=== PATIENT | male | born 1970 | race American Indian/Alaskan Native ===

== ENCOUNTER 2019-05-03 13:52 | Inpatient (IN) | payer MEDICARE ==
--- NOTE | 2019-05-03 15:21 | Emergency Department Report ---
ED General Adult HPI - General Chief complaint: Overdose Stated complaint: OBSERVATION Time Seen by Provider: 05/03/19 15:12 Source: patient, EMS ( EMS documentation not available at time of chart dictation ), RN notes reviewed, old records reviewed Mode of arrival: Stretcher Limitations: Altered Mental Status, Physical Limitation - History of Present Illness Initial comments: Vascular surgery, Dr. Rosalino Booker Past medical history: Hypertension, right above-knee amputation, on Coumadin, left upper extremity AV graft, CABG, renal insufficiency, on dialysis We do not know who the patient's power transformer repair supervisor is. The patient was reportedly at [facility] to get his dialysis shunt unclogged. He was reportedly given 50 g of fentanyl, 2 mg of Versed at 10:15 in the morning. He became unarousable, and 0.4 of Narcan was administered, and 2 of Romazicon were also administered, and the patient is sent to the ER for further evaluation. The patient is sleepy but arousable. The patient does not endorse any pain at this time. The patient refused to let nursing team take his temperature. In the emergency room, the patient is sleepy but arousable. He has not made any complaints of homicidality or suicidality. He makes no complaint of physical pain at this time. He is not able to describe exacerbating or relieving factors. He reportedly had overs planned for a left upper extremity venogram today. -: This morning Radiation: other Quality: other Consistency: other Improves with: other Worsens with: other - Related Data Allergies Allergy/AdvReac Type Severity Reaction Status Date / Time No Known Allergies Allergy Unverified 05/03/19 14:26 ED Review of Systems ROS: Stated complaint: OBSERVATION Other details as noted in HPI Comment: Unobtainable due to pts medical conditions ED Past Medical Hx - Past Medical History Hx Hypertension: Yes Hx Diabetes: Yes Hx Renal Disease: Yes - Social History Smoking Status: Former Smoker Substance Use Type: None ED Physical Exam - General General appearance: lethargic - Head Head exam: Present: atraumatic, normocephalic - Eye Eye exam: Present: normal appearance, PERRL - ENT ENT exam: Present: normal exam, mucous membranes moist, normal external ear exam - Neck Neck exam: Present: normal inspection, full ROM. Absent: tenderness, meningismus - Respiratory Respiratory exam: Present: normal lung sounds bilaterally. Absent: respiratory distress - Cardiovascular Cardiovascular Exam: Present: normal rhythm, bradycardia, normal heart sounds. Absent: systolic murmur, diastolic murmur, rubs, gallop - GI/Abdominal GI/Abdominal exam: Present: soft. Absent: distended, tenderness, guarding, rebound, rigid, pulsatile mass - Rectal Rectal exam: Present: deferred - Extremities Exam Extremities exam: Present: normal inspection, other (2+ pulses noted in bilateral upper extremities and left lower extremity. There is an upper extremity fistula, with no redness, pus or streaking. There is a left lower extremity below-knee amputation stump site, pilar in place, with no redness, pus or streaking) - Back Exam Back exam: Present: normal inspection - Neurological Exam Neurological exam: Present: altered, other (Eischen is sleepy but arousable. When the patient is aroused, he speaks in incomplete sentences, there is no facial droop, he does move his bilateral upper and lower extremities. However, he falls right back to sleep.) - Psychiatric Psychiatric exam: Present: flat affect - Skin Skin exam: Present: warm, dry, intact, normal color. Absent: rash ED Course Vital Signs 05/03/19 05/03/19 05/03/19 14:00 14:01 14:16 Pulse Rate 52 L Respiratory 19 23 Rate Blood Pressure 113/60 Blood Pressure [Left] O2 Sat by Pulse 100 91 100 Oximetry 05/03/19 05/03/19 05/03/19 14:18 14:30 14:46 Pulse Rate 51 L 51 L 51 L Respiratory 19 23 21 Rate Blood Pressure 113/66 117/69 Blood Pressure 113/66 [Left] O2 Sat by Pulse 98 99 97 Oximetry 05/03/19 05/03/19 05/03/19 15:00 15:16 15:30 Pulse Rate 50 L 51 L 52 L Respiratory 19 15 21 Rate Blood Pressure 120/65 121/68 121/71 Blood Pressure [Left] O2 Sat by Pulse 99 98 98 Oximetry 05/03/19 05/03/19 05/03/19 15:46 16:00 16:16 Pulse Rate 52 L 50 L 49 L Respiratory 18 23 18 Rate Blood Pressure 117/67 118/69 118/63 Blood Pressure [Left] O2 Sat by Pulse 98 98 98 Oximetry 05/03/19 05/03/19 05/03/19 16:30 16:46 17:00 Pulse Rate 51 L 51 L 50 L Respiratory 18 19 19 Rate Blood Pressure 116/66 116/66 120/66 Blood Pressure [Left] O2 Sat by Pulse 98 99 99 Oximetry 05/03/19 05/03/19 05/03/19 17:16 18:04 18:16 Pulse Rate 55 L Respiratory 19 Rate Blood Pressure 117/67 117/67 117/67 Blood Pressure [Left] O2 Sat by Pulse 100 98 97 Oximetry 05/03/19 05/03/19 05/03/19 18:30 18:46 19:00 Pulse Rate Respiratory Rate Blood Pressure 125/71 125/71 125/71 Blood Pressure [Left] O2 Sat by Pulse 97 98 100 Oximetry 05/03/19 05/03/19 19:16 19:30 Pulse Rate 63 Respiratory 23 Rate Blood Pressure 125/71 146/74 Blood Pressure 146/74 [Left] O2 Sat by Pulse 100 100 Oximetry - Reevaluation(s) Reevaluation #1: 05/03/19 17:14 Differential diagnosis, including but not limited to: Toxic encephalopathy, likely secondary to presedation medications, renal insufficiency, intracranial hemorrhage Assessment and plan: 48-year-old gentleman with prolonged altered mental status after sedating medications. He is arousable. He is refusing some but not all interventions. The patient in my opinion appears to have impaired judgment, but has not endorsed any homicidality or suicidality. He will be placed on a hold pending improvement in mental status. He is protecting his airway at this time. Screening laboratory studies EKG, noncontrast CT scan of the brain ordered. We do not know who his power transformer repair supervisor is. Anticipate admission for observation. Does not require Narcan at this time. He will require supportive care. Reevaluation #2: 05/03/19 18:04 Laboratory studies demonstrate hyperkalemia, 7.3. This was not verbally reported to me. This is a critical lab value. The patient will be treated emergently for his hyperkalemia in a medical capacity. An emergency nephrology consult has been requested. We have discussed with Hospital physician, Dr. Mariaelena Light who has accepted the patient to the medical service. Reevaluation #3: 05/03/19 18:09 Supratherapeutic INR reviewed and appreciated. There is no active vomiting at this time. There is no obvious bleeding at this time. Patient will be placed on a monitored setting. Reevaluation #4: 05/03/19 20:08 ct head negative - Consultations Consultation #1: 05/03/19 18:27 Dr Avina to arrange emergent hemodialysis ED Medical Decision Making - Lab Data Result diagrams: 05/03/19 16:26 05/03/19 16:26 Vital Signs 05/03/19 14:18 Pulse Rate 51 L Respiratory 19 Rate Blood Pressure 113/66 [Left] O2 Sat by Pulse 98 Oximetry Labs 05/03/19 05/03/19 16:26 16:39 WBC 11.6 H RBC 2.39 L Hgb 7.7 L Hct 24.1 L MCV 101 H MCH 32 MCHC 32 RDW 22.5 H Plt Count 264 PT 48.4 H INR 5.36 H* - EKG Data -: EKG Interpreted by Sd EKG shows normal: sinus rhythm Rate: bradycardia - EKG Data 05/03/19 18:05 There is no prior EKG available for comparison. This is a sinus bradycardia, left axis deviation, QTC is prolonged, nonspecific ST abnormalities, there is low voltage, the EKG is abnormal, the EKG is not consistent with ST elevation myocardial infarction. - Radiology Data Radiology results: pending, image reviewed Critical Care Time: Yes Critical care time in (mins) excluding proc time.: 35 Critical care attestation.: If time is entered above; I have spent that time in minutes in the direct care of this critically ill patient, excluding procedure time. ED Disposition Clinical Impression: Hyperkalemia, Uremia, Altered mental status, ESRD (end stage renal disease) Disposition: DC-09 OP ADMIT IP TO THIS HOSP Is pt being admited?: Yes Condition: Fair
--- NOTE | 2019-05-03 16:07 | XRay Report ---
CHEST 1 VIEW INDICATION: od weak ams. COMPARISON: None FINDINGS: Support devices: A right IJ vas catheter terminates in the superior right atrium. Heart: Previous cardiac valve surgery changes. Mild cardiomegaly is evident. Lungs/Pleura: No acute air space or interstitial disease. Additional findings: None. IMPRESSION: Mild cardiomegaly. Lungs clear. Signer Name: Peterson Mayer Jr, MD Signed: 05/03/2019 4:03 PM Workstation Name: [id number]
[2019-05-03 16:54] LABS: Hematocrit 24.1 % (35.5-45.6); Hemoglobin 7.7 gm/dl (11.8-15.2); Mean Corpuscular HGB Conc 32 % (32-34); Mean Corpuscular Volume 101 fl (84-94); Platelet Count 264 K/mm3 (140-440); Red Blood Count 2.39 M/mm3 (3.65-5.03)
[2019-05-03 16:55] LABS: Red Cell Distribution Width 22.5 % (13.2-15.2)
[2019-05-03 17:11] LABS: INR 5.36 (0.87-1.13)
[2019-05-03 17:29] LABS: Calcium 8.4 mg/dL (8.4-10.2)
[2019-05-03] MEDS ORDERED: PROVENTIL IH ONE ×3 (18:01→19:51)
[2019-05-03] MEDS ORDERED: D50W (25GM) Syringe IV PRN (18:01)
[2019-05-03] MEDS ORDERED: LASIX IV ONE (18:01)
[2019-05-03] MEDS ORDERED: KIONEX PR ONE (18:01)
[2019-05-03] MEDS ORDERED: HumuLIN R IV ONE (18:01)
[2019-05-03] MEDS ORDERED: D50W (25GM) Syringe IV ONE ×2 (18:01→18:34)
--- NOTE | 2019-05-03 18:11 | Cat Scan Report ---
CT head/brain wo con INDICATION / CLINICAL INFORMATION: 48 years Male; ams on coumadin. TECHNIQUE: Routine CT head without contrast. All CT scans at this location are performed using CT dos e reduction for ALARA by means of automated exposure control. COMPARISON: None. FINDINGS: BRAIN / INTRACRANIAL CONTENTS: There is notable calcification involving the scalp vessels a patient t his age. There is also mild calcification within the basal ganglia. However, there is no definitive C T evidence of acute intracranial hemorrhage or significant mass affect. The findings are compatible w ith old small lacunar infarct involving the head of the left caudate. The ventricular system is withi n normal limits in size and configuration. ORBITS: No significant abnormality of visualized orbits. SINUSES / MASTOIDS: No significant abnormality the visualized paranasal sinuses or mastoid air cells. CRANIOCERVICAL JUNCTION: No significant abnormality. ADDITIONAL FINDINGS: None. IMPRESSION: 1. There is no CT evidence of acute intracranial process. There is an old small lacunar infarct invol ving the head of the left caudate. Signer Name: Josse Martinez MD Signed: 05/03/2019 6:07 PM Workstation Name: [id number]
[2019-05-03] MEDS ORDERED: CALCIUM GLUCONATE 1,000 MG in NACL 0.9% 100 ML IV ONE (18:20)
[2019-05-03] MEDS ORDERED: HumuLIN R ONE (18:33)
[2019-05-03] MEDS ORDERED: LASIX ONE (18:35)
[2019-05-03] MEDS ORDERED: NACL 0.9% 100 ML IV PRN (19:07)
[2019-05-03] MEDS ORDERED: KIONEX ONE ×2 (19:30→19:33)
[2019-05-03] MEDS ORDERED: NACL 0.9 (PRIMING MACHINE ONLY DIALYSIS) MC ONE (22:25)
--- NOTE | 2019-05-03 23:34 | History and Physical Report ---
History of Present Illness Date of examination: 05/03/19 Date of admission: 05/03/19 18:08 Chief complaint: Persistent decreased responsiveness after surgical procedure History of present illness: The patient was reportedly at [facility] to get his dialysis shunt unclogged. He was reportedly given 50 g of fentanyl, 2 mg of Versed at 10:15 in the morning. He became unarousable, and 0.4 of Narcan was administered, and 2 of Romazicon were also administered, and the patient is sent to the ER for further evaluation. The patient is sleepy but arousable. The patient does not endorse any pain at this time. The patient refused to let nursing team take his temperature. In the emergency room, the patient is sleepy but arousable. He has not made any complaints of homicidality or suicidality. He makes no complaint of physical pain at this time. He is not able to describe exacerbating or relieving factors. He reportedly had overs planned for a left upper extremity venogram today. Past Medical History Hypertension: Yes Diabetes: Yes Renal Disease: Yes Social History Smoking Status: Former Smoker Substance Use Type: None Surgery history AV Graft John PACHECO Rt AKA Family history Htn Review of Systems ROS: Stated complaint: OBSERVATION Other details as noted in HPI Comment: Unobtainable due to pts medical conditions 14 point review of systems negative Medications and Allergies Allergies Allergy/AdvReac Type Severity Reaction Status Date / Time No Known Allergies Allergy Unverified 05/03/19 14:26 Home Medications Medication Instructions Recorded Confirmed Last Taken Type Carvedilol [Coreg] 12.5 mg PO BID 05/03/19 05/03/19 05/02/19 History Isosorb Dinit/Hydralazine [Bidil 1 each PO BID 05/03/19 05/03/19 05/02/19 History 20/37.5MG] Oxycodone HCl/Acetaminophen 1 each PO Q6HR PRN 05/03/19 05/03/19 04/20/19 History [Percocet 2.5/325 mg] cephALEXin [Keflex] 500 mg PO Q12HR 05/03/19 05/03/19 05/02/19 History Active Meds: Active Medications Dextrose (D50w (25gm) Syringe) 50 ml IV PRN PRN PRN Reason: Hypoglycemia Sodium Chloride (Nacl 0.9%) 100 mls @ 999 mls/hr IV CLINT PRN PRN Reason: Hypotension Exam - Constitutional Vitals: Temp Pulse Resp BP Pulse Ox 98.2 F 69 18 137/62 100 05/03/19 23:06 05/03/19 23:06 05/03/19 23:06 05/03/19 23:06 05/03/19 19:30 General appearance: Present: no acute distress, well-nourished - EENT Eyes: Present: PERRL ENT: hearing intact, clear oral mucosa - Neck Neck: Present: supple, normal ROM - Respiratory Respiratory effort: normal Respiratory: bilateral: CTA - Cardiovascular Heart rate: 78 Rhythm: regular Heart Sounds: Present: S1 & S2. Absent: rub, click - Extremities Extremities: pulses symmetrical, No edema, abnormal (Rt AKA) Peripheral Pulses: within normal limits - Abdominal General gastrointestinal: Present: soft, non-tender, non-distended, normal bowel sounds Male genitourinary: Present: normal - Integumentary Integumentary: Present: clear, warm, dry - Musculoskeletal Musculoskeletal: strength equal bilaterally, generalized weakness - Psychiatric Psychiatric: appropriate mood/affect, intact judgment & insight - Neurologic Neurologic: CNII-XII intact, moves all extremities, other (decreased responsive ness) Results - Labs CBC & Chem 7: 05/03/19 16:26 05/03/19 16:26 Labs: Laboratory Last Values WBC 11.6 K/mm3 (4.5-11.0) H 05/03/19 16:26 RBC 2.39 M/mm3 (3.65-5.03) L 05/03/19 16:26 Hgb 7.7 gm/dl (11.8-15.2) L 05/03/19 16:26 Hct 24.1 % (35.5-45.6) L 05/03/19 16:26 MCV 101 fl (84-94) H 05/03/19 16:26 MCH 32 pg (28-32) 05/03/19 16:26 MCHC 32 % (32-34) 05/03/19 16:26 RDW 22.5 % (13.2-15.2) H 05/03/19 16:26 Plt Count 264 K/mm3 (140-440) 05/03/19 16:26 PT 48.4 Sec. (12.2-14.9) H 05/03/19 16:39 INR 5.36 (0.87-1.13) H* 05/03/19 16:39 APTT 86.4 Sec. (24.2-36.6) H* 05/03/19 18:07 Sodium 138 mmol/L (137-145) 05/03/19 16:26 Potassium 7.3 mmol/L (3.6-5.0) H* 05/03/19 16:26 Chloride 100.8 mmol/L (98-107) 05/03/19 16:26 Carbon Dioxide 11 mmol/L (22-30) L 05/03/19 16:26 Anion Gap 34 mmol/L 05/03/19 16:26 BUN 93 mg/dL (9-20) H 05/03/19 16:26 Creatinine 13.6 mg/dL (0.8-1.5) H 05/03/19 16:26 Estimated GFR 5 ml/min 05/03/19 16:26 BUN/Creatinine Ratio 7 % 05/03/19 16:26 Glucose 157 mg/dL (75-100) H 05/03/19 16:26 Calcium 8.4 mg/dL (8.4-10.2) 05/03/19 16:26 Magnesium 2.10 mg/dL (1.7-2.3) 05/03/19 16:26 Total Creatine Kinase 76 units/L (55-170) 05/03/19 16:26 Salicylates < 0.3 mg/dL (2.8-20.0) L 05/03/19 16:26 Acetaminophen < 5.0 ug/mL (10.0-30.0) L 05/03/19 16:39 Plasma/Serum Alcohol < 0.01 % (0-0.07) 05/03/19 16:26 Hepatitis A IgM Ab Non-reactive (NonReactive) 05/03/19 19:50 Hep B Core IgM Ab Non-reactive (NonReactive) 05/03/19 19:50 Short CBC 05/03/19 Range/Units 16:26 WBC 11.6 H (4.5-11.0) K/mm3 Hgb 7.7 L (11.8-15.2) gm/dl Hct 24.1 L (35.5-45.6) % Plt Count 264 (140-440) K/mm3 BMP 05/03/19 16:26 Sodium 138 Potassium 7.3 H* Chloride 100.8 Carbon Dioxide 11 L BUN 93 H Creatinine 13.6 H Glucose 157 H Calcium 8.4 Cardiac Enzymes 05/03/19 Range/Units 16:26 Total Creatine Kinase 76 (55-170) units/L - Imaging and Cardiology EKG: report reviewed (sinus bradycardia heart rate of 56/m) Chest x-ray: report reviewed (mild cardiomegaly) CT Scan - head: report reviewed (no acute findings) Assessment and Plan Advance Directives: Yes (full code) VTE prophylaxis?: Chemical Plan of care discussed with patient/family: Yes - Patient Problems (1) Acute encephalopathy Current Visit: Yes Status: Acute Plan to address problem: Secondary to sedation Increase sensitivity to sedatives Admit for observation IV normal saline at 42 mL per hour (2) Hyperkalemia Current Visit: Yes Status: Acute Plan to address problem: Patient did get Kayexalate and calcium gluconate IV sodium bicarbonate and insulin IV. Recheck BMP. (3) ESRD (end stage renal disease) Current Visit: Yes Status: Chronic Plan to address problem: Continue hemodialysis as per schedule (4) Hypertension Current Visit: Yes Status: Chronic Qualifiers: Hypertension type: essential hypertension Qualified Code(s): I10 - Essential (primary) hypertension Plan to address problem: Continue antihypertensives (5) Type 2 diabetes mellitus Current Visit: Yes Status: Chronic Qualifiers: Diabetes mellitus terminal superintendent insulin use: unspecified terminal superintendent insulin use status Plan to address problem: Check hemoglobin A1c Continue home hypoglycemics Continue moderate dose sliding scale coverage (6) DVT prophylaxis Current Visit: Yes Status: Acute Plan to address problem: Heparin 5000 subcutaneous every 12 and GI prophylaxis
[2019-05-03 23:39] LABS: Hepatitis B Surface Antigen Non-Reactive (Negative); Hepatitis C Virus Antibody Non-Reactive (NonReactive)
[2019-05-03] MEDS ORDERED: TYLENOL PO PRN (23:42)
[2019-05-03] MEDS ORDERED: IBUPROFEN PO PRN (23:42)
[2019-05-03] MEDS ORDERED: SODIUM CHLORIDE FLUSH SYRINGE 10 ML IV PRN (23:42)
[2019-05-03] MEDS ORDERED: ZOFRAN IV PRN (23:42)
[2019-05-03] MEDS ORDERED: PEPCID IV SCH (23:45)
[2019-05-03] MEDS ORDERED: NACL 0.9% 1000 ML 1,000 ML IV SCH (23:45)
[2019-05-04] MEDS: BIDIL 20/37.5MG PO SCH ×2 (00:33→09:53)
[2019-05-04] MEDS: COREG PO SCH ×2 (00:34→09:53)
[2019-05-04] MEDS: HEPARIN SUB-Q SCH ×2 (00:35→09:54)
[2019-05-04 05:23] LABS: Hematocrit 23.3 % (35.5-45.6); Hemoglobin 7.7 gm/dl (11.8-15.2); Mean Corpuscular HGB Conc 33 % (32-34); Mean Corpuscular Volume 97 fl (84-94); Platelet Count 302 K/mm3 (140-440); Red Cell Distribution Width 22.5 % (13.2-15.2)
[2019-05-04 05:51] LABS: Albumin 2.9 g/dL (3.9-5); Calcium 8.5 mg/dL (8.4-10.2)
[2019-05-04 06:22] LABS: Anisocytosis 1+; Basophils % (Manual) 0 % (0.0-1.8); Eosinophils % (Manual) 0 % (0.0-4.3); Hypochromasia 1+; Total Cells Counted 100
[2019-05-04 06:24] LABS: Platelet Estimate Consistent w Auto; Schistocytes Rare
[2019-05-04] MEDS: HumaLOG SUB-Q SCH ×3 (07:45→16:30)
--- NOTE | 2019-05-04 09:38 | Consultation ---
History of Present Illness - History of Present Illness My assessment and plan are as follows End-stage renal disease: Patient will continue with hemodialysis treatment on Friday and Friday scheduled as tolerated, monitor dialysis related labs moderately severe hyperkalemia has improved after hemodialysis Severe metabolic acidosis currently appears to be doing better Vascular access issues: To be followed by vascular surgery Encephalopathy: Multifactorial he is doing much better post dialysis Anemia and end-stage renal disease: To monitor and follow, erythropoietin as required goal hemoglobin dialysis patients usually occurring 10 and 12, we will follow Secondary hyperparathyroidism: Monitor phosphorus and PTH periodically and adjust binders as needed Diet and nutrition: Fluid restriction 1200 mL per day, high-protein diet may benefit from nutrition consultation , patient is protein intake should be 1.5 g per KG body weight Hypertension and volume continue to monitor, educated about fluid restriction sodium restriction Prognosis remains guarded at this time We'll continue to follow and make recommendation from renal standpoint If you have any questions please feel free to contact me at [phone] Elton Vaca M.D. [facility], [address] [facility] [place] [address] History of presenting illness 48-year-old male who has been admitted here with altered mental status after he was given medication for vascular procedure and hence was brought into the hospital. Blood pressure has been stable. Is currently being treated for encephalopathy, which has remarkably improved when I saw the patient in the ICU he was fully alert awake and oriented He is currently being dialyzed at [place] [facility] Current dialysis access is a right upper chest permacath His fistula and the left arm is not working well Potassium was noted to be around 7.3 with a bicarbonate of 11 BUN of 93 and creatinine was 13.6 hemoglobin 7.7 Patient was ordered for hemodialysis currently is BUN is 47 creatinine 8.4 with a potassium of 4.2 Hepatitis profile was nonreactive Past medical history is significant for End-stage renal disease Anemia and end-stage renal disease Secondary hyperparathyroidism Current allergies: None Home medication present medication: Reviewed from the chart Social history/family history: Reviewed from the chart Review of system positive for altered mental status clotted AV access No fevers chills nausea vomiting All other review of system negative Physical examination: General: No acute distress HEENT: Oral mucosa moist no icterus, no facial swelling Neck: Supple no thyromegaly no lymphadenopathy no JVD Chest: Clear to auscultation no crackles rales or wheezes Central venous catheter site unremarkable right upper chest Heart: Regular rate and rhythm S1-S2 heard no S3-S4 Abdomen: Soft nontender no organomegaly no masses palpable no renal bruit no suprapubic masses no CVA tenderness Dermatology: No skin rashes noted Extremity: Less than 1+ peripheral edema, dry skin no petechial rashes fistula appears to be clotted in the left arm Musculoskeletal: No joint effusion noted in knee and ankle area Psych: No evidence of agitation and aggression noted Neurological: Alert awake follows commands no tremors no myoclonus Back: No CVA tenderness Medications and Allergies Allergies Allergy/AdvReac Type Severity Reaction Status Date / Time No Known Allergies Allergy Unverified 05/03/19 14:26 Home Medications Medication Instructions Recorded Confirmed Last Taken Type Carvedilol [Coreg] 12.5 mg PO BID 05/03/19 05/03/19 05/02/19 History Isosorb Dinit/Hydralazine [Bidil 1 each PO BID 05/03/19 05/03/19 05/02/19 History 20/37.5MG] Oxycodone HCl/Acetaminophen 1 each PO Q6HR PRN 05/03/19 05/03/19 04/20/19 History [Percocet 2.5/325 mg] cephALEXin [Keflex] 500 mg PO Q12HR 05/03/19 05/03/19 05/02/19 History Active Meds: Active Medications Acetaminophen (Tylenol) 650 mg PO Q4H PRN PRN Reason: Pain MILD(1-3)/Fever >100.5/SANCHEZ Carvedilol (Coreg) 12.5 mg PO BID [facility] Last Admin: 05/04/19 00:34 Dose: 12.5 mg Documented by: Dextrose (D50w (25gm) Syringe) 50 ml IV PRN PRN PRN Reason: Hypoglycemia Famotidine (Pepcid) 10 mg PO BID [facility] Heparin Sodium (Porcine) (Heparin) 5,000 unit SUB-Q Q12HR [facility] Last Admin: 05/04/19 00:35 Dose: 5,000 unit Documented by: Sodium Chloride (Nacl 0.9%) 100 mls @ 999 mls/hr IV CLINT PRN PRN Reason: Hypotension Sodium Chloride (Nacl 0.9% 1000 Ml) 1,000 mls @ 42 mls/hr IV DIRECT [facility] Last Admin: 05/04/19 00:37 Dose: 42 mls/hr Documented by: Ibuprofen (Ibuprofen) 600 mg PO Q6H PRN PRN Reason: Pain, Mild (1-3) Last Admin: 05/04/19 00:36 Dose: 600 mg Documented by: Insulin Human Lispro (Humalog) 0 unit SUB-Q ACHS [facility]; Protocol Isosorbide Dinitrate/Hydralazine (Bidil 20/37.5mg) 1 each PO BID [facility] Last Admin: 05/04/19 00:33 Dose: 1 each Documented by: Ondansetron HCl (Zofran) 4 mg IV Q8H PRN PRN Reason: Nausea And Vomiting Sodium Chloride (Sodium Chloride Flush Syringe 10 Ml) 10 ml IV BID [facility] Sodium Chloride (Sodium Chloride Flush Syringe 10 Ml) 10 ml IV PRN PRN PRN Reason: LINE FLUSH Exam - Vital Signs Vital signs: Vital Signs Resp Pulse Ox 19 100 05/03/19 14:00 05/03/19 14:00 Results - Lab Results 05/04/19 04:51 05/04/19 04:51 Most recent lab results Calcium 8.5 mg/dL (8.4-10.2) 05/04/19 04:51 Magnesium 2.10 mg/dL (1.7-2.3) 05/03/19 16:26
[2019-05-04] MEDS ORDERED: NACL 0.9% 100 ML IV PRN (09:42)
[2019-05-04] MEDS ORDERED: PEPCID PO SCH (10:00)
[2019-05-04] MEDS ORDERED: SODIUM CHLORIDE FLUSH SYRINGE 10 ML IV SCH (10:00)
[2019-05-04] MEDS ORDERED: NACL 0.9 (PRIMING MACHINE ONLY DIALYSIS) MC ONE (12:44)
[2019-05-04 17:18] VITALS: BP 152/75
--- NOTE | 2019-05-04 19:49 | Discharge Summary ---
Providers - Providers Date of Admission: 05/03/19 18:08 Date of discharge: 05/04/19 Attending physician: DESIREE CASANOVA 05/03/19 18:00 Consult to Physician [CONS] Urgent Comment: Consulting Provider: COMPA NORTH Physician Instructions: Reason For Exam: hyperkalemia 05/04/19 10:05 Consult to Wound/ET Nurse [CONS] Routine Reason For Exam: s/p right AKA weeks ago Primary care physician: M[employer] JUDGE Hospitalization Condition: Fair Hospital course: The patient was reportedly at [facility] to get his dialysis shunt u nclogged and venogram. He was reportedly given 50 g of fentanyl, 2 mg of Versed at 10:15 in the morning. He became unarousable, and 0.4 of Narcan was administered, and 2 of Romazicon were also administered, and the patient is sent to the ER for further evaluation. The patient is sleepy but arousable. The patient does not endorse any pain at this time. The patient refused to let nursing team take his temperature. In the emergency room, the patient is sleepy but arousable. He has not made any complaints of homicidality or suicidality. He makes no complaint of physical pain at this time. He is not able to describe exacerbating or relieving factors. He reportedly had planned left upper extremity venogram today. (1) Acute encephalopathy Current Visit: Yes Status: Acute Plan to address problem: Secondary to sedation Increase sensitivity to sedatives Resolved Back to normal status (2) Hyperkalemia Current Visit: Yes Status: Acute Plan to address problem: Patient did get Kayexalate and calcium gluconate IV sodium bicarbonate and insulin IV. 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 insulin use status Plan to address problem: Check hemoglobin A1c Continue home hypoglycemics Continue moderate dose sliding scale coverage Disposition: DC-01 TO HOME OR SELFCARE Core Measure Documentation - Palliative Care Palliative Care/ Comfort Measures: Not Applicable - Core Measures Any of the following diagnoses?: none Exam - Constitutional Vitals: Temp Pulse Resp BP Pulse Ox 99 F 85 28 H 152/75 98 05/04/19 16:00 05/04/19 17:00 05/04/19 17:00 05/04/19 17:00 05/04/19 17:00 General appearance: Present: no acute distress, well-nourished - EENT Eyes: Present: PERRL ENT: hearing intact, clear oral mucosa - Neck Neck: Present: supple, normal ROM - Respiratory Respiratory effort: normal Respiratory: bilateral: CTA - Cardiovascular Heart rate: 78 Rhythm: regular Heart Sounds: Present: S1 & S2. Absent: rub, click - Extremities Extremities: no ischemia, pulses intact, pulses symmetrical, No edema Peripheral Pulses: within normal limits - Abdominal General gastrointestinal: Present: soft, non-tender, non-distended, normal bowel sounds Male genitourinary: Present: normal - Rectal Rectal Exam: deferred - Integumentary Integumentary: Present: clear, warm, dry - Musculoskeletal Musculoskeletal: gait normal, strength equal bilaterally - Psychiatric Psychiatric: appropriate mood/affect, intact judgment & insight - Neurologic Neurologic: CNII-XII intact, moves all extremities - Allied Health Allied health notes reviewed: nursing, case management Plan Diet: renal Follow up with: PRIMARY CAREMD [Primary Care Provider] - 3-5 Days
== END 2019-05-04 19:15 | disposition home or self-care (01) | DRG 91 ==
LOC: ED 13:52 → IMCU 18:08
PROVIDERS: ADMIT Internal Medicine; ATTEND Internal Medicine
PROC: 5A1D70Z Performance of Urinary Filtration, Intermittent, Less than 6 Hours Per Day (ICD-10-PCS; principal; 2019-05-03)
PROC: 5A1D70Z Performance of Urinary Filtration, Intermittent, Less than 6 Hours Per Day (ICD-10-PCS; 2019-05-04)
DX: G92 Toxic encephalopathy (principal); N18.6 End stage renal disease; E87.2 Acidosis; I12.0 Hypertensive chronic kidney disease with stage 5 chronic kidney disease or end stage renal disease; N25.81 Secondary hyperparathyroidism of renal origin; T42.75XA Adverse effect of unspecified antiepileptic and sedative-hypnotic drugs, initial encounter; Y92.239 Unspecified place in hospital as the place of occurrence of the external cause; E87.5 Hyperkalemia; E11.22 Type 2 diabetes mellitus with diabetic chronic kidney disease; D64.9 Anemia, unspecified; Y92.89 Other specified places as the place of occurrence of the external cause; Z79.899 Other long term (current) drug therapy; Z89.611 Acquired absence of right leg above knee; Z82.49 Family history of ischemic heart disease and other diseases of the circulatory system; Z95.1 Presence of aortocoronary bypass graft
CPT/HCPCS: 36415; 70450; 71045; 80048; 80053; 80074; 80320; 82550; 82962; 83036; 83735; 85007; 85025; 85027; 85610; 85730; 93005; 93010; 96374; G0378; G0480; J0610; J1644; J1815; J1940; J7030